=== PATIENT | female | born 1995 | race Caucasian/White ===

== ENCOUNTER 2018-01-03 18:10 | Emergency (ER) | payer SELFPAY ==
--- NOTE | 2018-01-03 18:36 | ED ---
Laceration/Wound HPI - HPI Summary HPI Summary: 22-year-old female presents with left elbow injury today. States she slipped and fell onto her left elbow. The fall was a mechanical fall. She landed on a bent elbow. She states she landed on the concrete. She has full range of motion of elbow with pain. No numbness or tingling. No previous fracture to the area. She had her tetanus a couple months ago. He has no medical conditions. Area is not actively bleeding. She denies any head injury. no LOC. no neck pain. no other injury. She is right handed. she did have some ETOH. - History of Current Complaint Stated Complaint: FALL/ELBOW ABRASION Time Seen by Provider: 01/03/18 18:26 Pain Intensity: 5 - Allergy/Home Medications Allergies/Adverse Reactions: Allergies Allergy/AdvReac Type Severity Reaction Status Date / Time No Known Allergies Allergy Verified 01/03/18 18:17 Home Medications: Home Medications Desog-E.estradiol/E.estradiol [Viorele 28 Day Tablet] 1 tab PO DAILY 01/03/18 [ History Confirmed 01/03/18] PMH/Surg Hx/FS Hx/Imm Hx Endocrine/Hematology History: Denies: Hx Diabetes, Hx Thyroid Disease Cardiovascular History: Denies: Hx Hypertension Respiratory History: Denies: Hx Asthma, Hx Chronic Obstructive Pulmonary Disease (COPD) GI History: Denies: Hx Ulcer Infectious Disease History: No Infectious Disease History: Denies: Hx Hepatitis, Hx Human Immunodeficiency Virus (HIV), Traveled Outside the [place] in Last 30 Days - Social History Alcohol Use: Occasionally Substance Use Type: Reports: None Smoking Status (MU): Never Smoked Tobacco Review of Systems Negative: Fever Negative: Chest Pain Negative: Shortness Of Breath Positive: Myalgia - left elbow injury Positive: Other - left elbow lac All Other Systems Reviewed And Are Negative: Yes Physical Exam Triage Information Reviewed: Yes Vital Signs On Initial Exam: Initial Vitals Temp Pulse Resp BP Pulse Ox 98.6 F 89 14 120/53 98 01/03/18 18:15 01/03/18 18:15 01/03/18 18:15 01/03/18 18:15 01/03/18 18:15 Vital Signs Reviewed: Yes Appearance: Positive: Well-Appearing Skin: Positive: Warm, Dry, Other - 2cm by 1cm by 1/4cm laceration on left elbow Head/Face: Positive: Normal Head/Face Inspection Eyes: Positive: Normal, Conjunctiva Clear ENT: Positive: Pharynx normal Respiratory/Lung Sounds: Positive: Clear to Auscultation, Breath Sounds Present Cardiovascular: Positive: Normal, RRR Musculoskeletal: Positive: Strength/ROM Intact - left elbow, Other - nontender left wrist and shoulder, good pulses, capillary refill<2 secs, sensation grossly intact Neurological: Positive: Normal Psychiatric: Positive: Normal Procedures - Laceration/Wound Repair 1 Location: Other - left elbow Description: Linear Anesthesia: Local, 1.0%, Epi Length, Depth and Shape: 2cm by 1cm Irrigated w/ Saline (ccs): 300 Laceration/Wound Explored: no foreign body removed Closure: Single Layer Suture Type: Prolene Number of Sutures: 2 Sterile Dressing Applied?: No - telfa and coband Diagnostics - Vital Signs Vital Signs Temp Pulse Resp BP Pulse Ox 01/03/18 18:15 98.6 F 89 14 120/53 98 - Laboratory Lab Statement: Any lab studies that have been ordered have been reviewed, and results considered in the medical decision making process. Laceration Repair Course/Dx - Course Course Of Treatment: 22-year-old female presents with left elbow injury today. States she slipped and fell onto her left elbow. The fall was a mechanical fall. She landed on a bent elbow. She has full range of motion of elbow with pain. No numbness or tingling. No previous fracture to the area. She had her tetanus a couple months ago. He has no medical conditions. Area is not actively bleeding. She denies any head injury. no LOC. no neck pain. no other injury. on exam has full ROM with pain of elbow. patient declined xray even though explained could have radial head fx. patient still declined. has 2cm by 1cm lac. cleaned area extensively and placed 2 sutures. told to keep area clean and watch for any signs of infection. patient understand and agrees with plan. - Differential Dx Differental Diagnoses: Abrasion, Avulsion, Laceration - Clinical Impression Provider Diagnoses: Injury of left elbow, Laceration of left elbow Discharge - Sign-Out/Discharge Documenting (check all that apply): Patient Departure - Discharge Plan Condition: Good Disposition: HOME Patient Education Materials: Care For Your Stitches (ED) Referrals: Andriy Perez MD [Primary Care Provider] - Additional Instructions: Take Tylenol or ibuprofen for pain every 6 hours as needed ice Keep area clean and dry for 24 hours, then place bandage on area Return to ED or primary in 8-10 days to have sutures removed Return to ED if develop signs of infection such as fever, spreading redness, or pus. - Billing Disposition and Condition Condition: GOOD Disposition: Home
[2018-01-03 19:13] VITALS: BP 94/69
== END 2018-01-03 19:10 | disposition home or self-care (01) ==
LOC: ED 18:10
DX: S51.012A Laceration without foreign body of left elbow, initial encounter (principal); S59.902A Unspecified injury of left elbow, initial encounter; W01.0XXA Fall on same level from slipping, tripping and stumbling without subsequent striking against object, initial encounter; Y92.9 Unspecified place or not applicable
CPT/HCPCS: 12001; 99282